=== PATIENT | female | born 1955 | race Caucasian/White ===

== ENCOUNTER 2017-10-24 17:02 | Emergency (ER) | payer MEDICAID ==
[~2017-10-24] VITALS: Ht 182.9 cm; Wt 62.1 kg
--- NOTE | 2017-10-24 17:30 | NUR ---
PATIENT TO ED DT LEFT LEG PAIN AND NUMBNESS X 5 DAYS. PATIENT VERBLAIZED " IM WORRIED ABOUT HAVING CLOT" PT IS AMBULATORY/ VSS
[2017-10-24 17:39] LABS: BASOPHILS # (AUTO) 0.1 /CMM (0.0-0.2); BASOPHILS % (AUTO) 1.2 % (0.0-2.0); EOSINOPHILS # (AUTO) 0.1 /CMM (0.0-0.7); EOSINOPHILS % (AUTO) 1.6 % (0.0-6.0); HEMATOCRIT 40 % (33-45); HEMOGLOBIN 13.2 g/dL (11.5-14.8); LYMPHOCYTES # (AUTO) 2.2 /CMM (0.8-4.8); LYMPHOCYTES % (AUTO) 31.6 % (20.0-44.0); MEAN CORPUSCULAR HEMOGLOBIN 27 PG (26.0-33.0); MEAN CORPUSCULAR HGB CONC 33 g/dl (31.0-36.0); MEAN CORPUSCULAR VOLUME 82 fL (82-100); MONOCYTES # (AUTO) 0.5 /CMM (0.1-1.30); MONOCYTES % (AUTO) 6.8 % (2.0-12.0); NEUTROPHILS % (AUTO) 58.8 % (43.0-81.0); PLATELET COUNT (AUTO) 250 /CMM (150-450); RED BLOOD CELL COUNT(AUTO) 4.83 MIL/uL (4.0-5.2); WHITE BLOOD COUNT (AUTO) 6.9 K/uL (4.3-11.0)
--- NOTE | 2017-10-24 17:52 | NUR ---
PT REFUSED CT BECAUSE SHE IS CLAUSTROPHOBIC. I SPOKE TO THE PT RE: THE CT AND PT AGREED TO GO FOR CT. PT LEFT VIA WC.
[2017-10-24 17:55] LABS: INR 0.92 (0.85-1.15)
[2017-10-24 17:58] LABS: TROPONIN I < 0.017 ng/mL (0.00-0.056)
--- NOTE | 2017-10-24 18:07 | NUR ---
PT RETURNED FROM CT VIA WC.
[2017-10-24 18:11] LABS: CALCIUM, SERUM 9.5 mg/dL (8.5-10.1); CARBON DIOXIDE 30 mmol/L (21-32); CHLORIDE 101 mmol/L (98-107); CREATININE 0.7 mg/dL (0.6-1.3); GLUCOSE 101 mg/dL (74-106); POTASSIUM 3.9 mmol/L (3.5-5.1); SODIUM SERUM 139 mmol/L (136-145); UREA NITROGEN, BLOOD 11 mg/dL (7-18)
[2017-10-24 18:17] LABS: ALANINE AMINOTRANSFERASE 22 U/L (12-78); ALBUMIN 3.8 g/dL (3.4-5.0); ALKALINE PHOSPHATASE 110 U/L (46-116); ASPARTATE AMINOTRANSFERASE 25 U/L (15-37); BILIRUBIN,DIRECT 0.1 mg/dL (0.0-0.2); BILIRUBIN,TOTAL 0.4 mg/dL (0.2-1.0); TOTAL PROTEIN, SERUM 7.6 g/dL (6.4-8.2)
--- NOTE | 2017-10-24 18:42 | NUR ---
VENOUS AND ARTERIAL DOPPLER TECH IS AT THE BEDSIDE.
--- NOTE | 2017-10-24 19:19 | NUR ---
VENOUS DOPPLER FINISHED.
--- NOTE | 2017-10-24 19:32 | NUR ---
DR. KHAN IS AT THE BEDSIDE SPEAKING TO THE PT RE: CT FINDINGS.
[2017-10-24 19:48] VITALS: BP 116/75
== END 2017-10-24 19:49 | disposition home or self-care (01) ==
LOC: ER 17:03
DX: M51.26 Other intervertebral disc displacement, lumbar region (principal); R20.2 Paresthesia of skin
CPT/HCPCS: 36415; 70450-TC; 71045-TC; 72131-TC; 80048-TC; 80076-TC; 84484-TC; 85025-TC; 85730-TC; 93926-TC; 93971-TC; A4606; Z7610

== ENCOUNTER 2018-11-06 07:20 | Emergency (ER) | payer OTHER ==
[~2018-11-06] VITALS: Ht 180.3 cm; Wt 62.6 kg
--- NOTE | 2018-11-06 07:20 | NUR ---
PT BBSELF FOR DYSURIA, URGENCY X 2 DAYS; PT AAOX3, PT ON MONITOR, VSS, NAD NOTED, PENDING ER PROVDER EVAL
--- NOTE | 2018-11-06 07:50 | NUR ---
URINE COLLECTED, SENT TO LAB
--- NOTE | 2018-11-06 07:51 | NUR ---
PER DR. ARMAS; CALL SW FOR PT. CALLED [facility], NOT IN BUILDING YET
[2018-11-06 07:56] LABS: APPEARANCE,URINE CLOUDY (CLEAR); BILIRUBIN,URINE NEGATIVE (NEGATIVE); BLOOD, URINE 3+ Ery/uL (NEGATIVE); COLOR,URINE YELLOW (YELLOW); KETONES,URINE NEGATIVE (NEGATIVE); LEUKOCYTE ESTERASE ,URINE 3+ (NEGATIVE); NITRITE, URINE POSITIVE (NEGATIVE); PROTEIN,URINE 2+ mg/dl (NEGATIVE); UGLUCOSE NEGATIVE (NEGATIVE); UROBILINOGEN,URINE 0.2 EU/dL (0.2)
[2018-11-06 07:58] LABS: BASOPHILS # (AUTO) 0.1 /CMM (0.0-0.2); BASOPHILS % (AUTO) 1.2 % (0.0-2.0); EOSINOPHILS % (AUTO) 0.9 % (0.0-6.0); HEMATOCRIT 40 % (33-45); HEMOGLOBIN 12.9 g/dL (11.5-14.8); LYMPHOCYTES # (AUTO) 4.5 /CMM (0.8-4.8); LYMPHOCYTES % (AUTO) 42.3 % (20.0-44.0); MEAN CORPUSCULAR HGB CONC 33 g/dl (31.0-36.0); MEAN CORPUSCULAR VOLUME 80 fL (82-100); MONOCYTES # (AUTO) 0.5 /CMM (0.1-1.30); MONOCYTES % (AUTO) 4.7 % (2.0-12.0); NEUTROPHILS # (AUTO) 5.3 /CMM (1.8-8.9); NEUTROPHILS % (AUTO) 50.9 % (43.0-81.0); PLATELET COUNT (AUTO) 163 /CMM (150-450); RED BLOOD CELL COUNT(AUTO) 4.95 MIL/uL (4.0-5.2); WHITE BLOOD COUNT (AUTO) 10.5 K/uL (4.3-11.0)
[2018-11-06 08:01] LABS: BACTERIA,URINE Many /HPF (None Seen); RBC,URINE TOO NUMEROUS TO COUN /HPF (0-2); SQUAMOUS EPITHELIAL CELL,UR Few /HPF (None Seen); WBC,URINE TOO NUMEROUS TO COUN /HPF (0-3)
[2018-11-06 08:07] LABS: CALCIUM, SERUM 9.5 mg/dL (8.5-10.1); CARBON DIOXIDE 28 mmol/L (21-32); CHLORIDE 100 mmol/L (98-107); CREATININE 0.9 mg/dL (0.6-1.3); GLUCOSE 107 mg/dL (74-106); POTASSIUM 4.4 mmol/L (3.5-5.1); SODIUM SERUM 140 mmol/L (136-145); UREA NITROGEN, BLOOD 14 mg/dL (7-18)
[2018-11-06 08:14] LABS: ALANINE AMINOTRANSFERASE 26 U/L (12-78); ALCOHOL, BLOOD < 3 mg/dL (0-0); ALKALINE PHOSPHATASE 139 U/L (46-116); ASPARTATE AMINOTRANSFERASE 30 U/L (15-37); BILIRUBIN,DIRECT 0.1 mg/dL (0.0-0.2); BILIRUBIN,TOTAL 0.7 mg/dL (0.2-1.0); SALICYLATE 0.5 mg/dL (2.8-20.0); TOTAL PROTEIN, SERUM 8.1 g/dL (6.4-8.2)
--- NOTE | 2018-11-06 08:14 | NUR ---
[facility] SW AT BEDSIDE TALKING TO PATIENT.
[2018-11-06 08:15] LABS: ACETAMINOPHEN < 2 ug/ml (10-30)
--- NOTE | 2018-11-06 08:30 | NUR ---
LOS received a call from ED requesting for SW to assess pt. SW met with pt. bedside. Pt. is a 63 year old female who came to ED complaining of a UTI. Pt. appears well groomed. Pt. is alert and oriented x 4. Pt's. mood was anxious and her affect was mood congruent. Patient reported having one daughter Alma Barry. When SW inquired about Alma, pt. stated, " [place] is [place] of the [place]." SW inquired with pt. where she resides and pt. stated she is renting a room. However, pt. would not elaborate any further. SW asked the address to her residence, however pt. did not provide. the address on the face sheet is pt's mailing address. Pt. has recently applied for SSI and is awaiting her initial check. Pt. appeared confused at times, however was able to respond appropriately to questions that were asked of her. LOS inquired with pt. if she needs any resources, but pt. declined. SW offered pt. breakfast, which pt. agreed to. Pt's RN Chuy was informed regarding a breakfast tray. SW offered pt. taxi transportation if her friend was unable to pick her up. No other social service needs are requested at this time. LOS updated Dr. Banks with the aforementioned information.
--- NOTE | 2018-11-06 08:50 | NUR ---
PT PROVIDED W/ BREAKFAST TRAY.
--- NOTE | 2018-11-06 09:45 | NUR ---
Isrrael CINTRON at bedside for eval.
[2018-11-06] MEDS ORDERED: CEPHALEXIN MONOHYDRATE 500 MG CAPSULE PO ONE ×2 (10:00→10:09)
[2018-11-06 11:33] VITALS: BP 121/65
--- NOTE | 2018-11-06 11:34 | NUR ---
Patient discharged to home in stable condition. Written and verbal after care instructions given. Patient verbalizes understanding of instruction. Addendum: 11/06/18 at 1134 by RAKEL taxi voucher provided. informed to follow up with PMD and amenable.
== END 2018-11-06 11:34 | disposition home or self-care (01) ==
LOC: ER 07:24
DX: N39.0 Urinary tract infection, site not specified (principal); F43.9 Reaction to severe stress, unspecified; Z60.2 Problems related to living alone
CPT/HCPCS: 36415; 80048-TC; 80076-TC; 80305; 81000-TC; 85025-TC; 87086-TC; 87186-TC; G0480

== ENCOUNTER 2019-04-06 17:22 | Emergency (ER) | payer OTHER ==
[~2019-04-06] VITALS: Ht 182.9 cm; Wt 62.6 kg
[2019-04-06 17:25] VITALS: BP 125/84
[2019-04-06 17:41] LABS: APPEARANCE,URINE Cloudy (CLEAR); BILIRUBIN,URINE Negative (NEGATIVE); BLOOD, URINE Small Ery/uL (NEGATIVE); COLOR,URINE Other (YELLOW); KETONES,URINE Negative (NEGATIVE); LEUKOCYTE ESTERASE ,URINE Large (NEGATIVE); NITRITE, URINE Negative (NEGATIVE); PROTEIN,URINE Negative (NEGATIVE); UGLUCOSE Negative (NEGATIVE); UROBILINOGEN,URINE 0.2 EU/dL (0.2)
[2019-04-06 17:53] LABS: BACTERIA,URINE Rare /HPF (None Seen); SQUAMOUS EPITHELIAL CELL,UR Few /HPF (None Seen); WBC,URINE TOO NUMEROUS TO COUN /HPF (0-3)
[2019-04-06] MEDS ORDERED: FOSFOMYCIN TROMETHAMINE 3 G/PKT PACKET PO ONE (18:30)
== END 2019-04-06 18:22 | disposition home or self-care (01) ==
LOC: ER 17:22
DX: N30.00 Acute cystitis without hematuria (principal); M54.5 Low back pain; Z60.2 Problems related to living alone
CPT/HCPCS: 81000-TC; 87086-TC; 87186-TC

== ENCOUNTER 2019-12-30 21:35 | Inpatient (IN) | payer MEDICARE, OTHER ==
[~2019-12-30] VITALS: Ht 182.9 cm; Wt 69.0 kg
--- NOTE | 2019-12-30 21:50 | NUR ---
PT BIBRA C/O CP SINCE 7PM WITH PALPITATIONS THAT STARTED "OUT OF NOWHERE." ON THE WAY PT HR WAS 200, GIVEN 6 ADENOSINE, CONVERTED TO 100. UPON ARRIVAL PT DENIES CP UPON ASSESSMENT, HR AT 102. PLACED ON FURNITURE TECHNICIAN AND PULSE OX. VSS. NO ACUTE DISTRESS NOTED. AWAITING MD FOR EVAL AND ORDERS.
--- NOTE | 2019-12-30 22:14 | NUR ---
PRODUCE WRAPPER AT BEDSIDE FOR LABS
--- NOTE | 2019-12-30 22:19 | NUR ---
XRAY AT BEDSIDE
[2019-12-30 22:22] LABS: EOSINOPHILS % (AUTO) 0.3 % (0.0-6.0); HEMOGLOBIN 9.2 g/dL (11.5-14.8)
[2019-12-30 22:26] LABS: BASOPHILS # (AUTO) 0.1 /CMM (0.0-0.2); BASOPHILS % (AUTO) 0.1 % (0.0-2.0); HEMATOCRIT 32 % (33-45); LYMPHOCYTES # (AUTO) 80.1 /CMM (0.8-4.8); LYMPHOCYTES % (AUTO) 91.8 % (20.0-44.0); MEAN CORPUSCULAR HGB CONC 29 g/dl (31.0-36.0); MEAN CORPUSCULAR VOLUME 77 fL (82-100); MONOCYTES # (AUTO) 1.4 /CMM (0.1-1.30); MONOCYTES % (AUTO) 1.6 % (2.0-12.0); NEUTROPHILS # (AUTO) 5.4 /CMM (1.8-8.9); NEUTROPHILS % (AUTO) 6.2 % (43.0-81.0); PLATELET COUNT (AUTO) 124 /CMM (150-450)
--- NOTE | 2019-12-30 22:27 | NUR ---
WBC 87.2 CRITICAL
[2019-12-30 22:29] LABS: POTASSIUM 4.4 mmol/L (3.5-5.1); WHITE BLOOD COUNT (AUTO) 87.2 K/uL (4.3-11.0)
--- NOTE | 2019-12-30 22:43 | NUR ---
IV REMOVED FROM L FOREARM DUE TO PT NOT HAVING LYMPH NODES. IV INITIATED RAC.
--- NOTE | 2019-12-30 22:50 | NUR ---
AMBUALTED TO RESTROOM
--- NOTE | 2019-12-30 22:57 | NUR ---
URINE COLLECTED AND SENT TO LAB
[2019-12-30] MEDS ORDERED: IV NS 0.9% 1,000 ML BAG IV ONE (23:00)
[2019-12-30 23:04] LABS: APPEARANCE,URINE Clear (CLEAR); BILIRUBIN,URINE Negative (NEGATIVE); BLOOD, URINE Negative Ery/uL (NEGATIVE); COLOR,URINE Yellow (YELLOW); KETONES,URINE Negative (NEGATIVE); LEUKOCYTE ESTERASE ,URINE Trace (NEGATIVE); NITRITE, URINE Negative (NEGATIVE); PH,URINE 6.5 (5.0-8.0); PROTEIN,URINE Negative (NEGATIVE); UGLUCOSE Negative (NEGATIVE); UROBILINOGEN,URINE 0.2 EU/dL (0.2)
[2019-12-30 23:15] LABS: BACTERIA,URINE Few /HPF (None Seen); RBC,URINE 0-2 /HPF (0-2); SQUAMOUS EPITHELIAL CELL,UR Few /HPF (None Seen)
[2019-12-30 23:15] LABS: EOSINOPHILS % (MANUAL) 1 % (0-4); LYMPHOCYTES % (MANUAL) 94 % (16-48); MONOCYTES % (MANUAL) 1 % (0-11.0); NEUTROPHILS % (MANUAL) 4 (42-76)
[2019-12-30] MEDS ORDERED: LORAZEPAM 0.5 MG TABLET ONE (23:18)
--- NOTE | 2019-12-30 23:19 | NUR ---
MD AT BEDSIDE SPEAKING TO PT
[2019-12-30 23:23] LABS: ALBUMIN 3.4 g/dL (3.4-5.0); BILIRUBIN,DIRECT 0.1 mg/dL (0.0-0.2); BILIRUBIN,TOTAL 0.5 mg/dL (0.2-1.0); TOTAL PROTEIN, SERUM 7.4 g/dL (6.4-8.2)
[2019-12-30] MEDS ORDERED: LORAZEPAM 1 MG TABLET PO ONE (23:30)
[2019-12-31] VITALS (9 sets, daily range): BP systolic 98–109; BP diastolic 65–82
[2019-12-31] MEDS ORDERED: ONDANSETRON HCL/PF 4 MG/2 ML VIAL IVP PRN (01:00)
[2019-12-31] MEDS ORDERED: ZOLPIDEM TARTRATE 5 MG TABLET PO PRN (01:00)
[2019-12-31] MEDS ORDERED: ACETAMINOPHEN 325 MG TABLET PO PRN (01:00)
[2019-12-31] MEDS ORDERED: Z GUARD REMEDY 2 OZ OINT TP PRN (01:00)
[2019-12-31] MEDS ORDERED: HYDROCODONE/APAP 5/325MG 1 EACH TABLET PO PRN (01:00)
[2019-12-31] MEDS ORDERED: MAGNESIUM HYDROXIDE 30 ML UDC PO PRN (01:00)
[2019-12-31 01:18] LABS: THYROID STIMULATING HORMONE 4.558 uIU/mL (0.358-3.74)
--- NOTE | 2019-12-31 01:19 | NUR ---
REPORT GIVEN TO STACY PATTERSON FOR AILEEN
--- NOTE | 2019-12-31 01:40 | NUR ---
ECHO AT BEDSIDE
--- NOTE | 2019-12-31 02:29 | NUR ---
PT TRANSFERERD PER ACLS PROTOCOL
--- NOTE | 2019-12-31 03:19 | NUR ---
ADMISSION NOTES: RECEIVED REPORT FROM BENY AT 0140AM. PT BROUGHT TO THE UNIT VIA GURNEY AT 0225AM. PT A/O X4, ON RA RESPIRATION EVEN AND UNLABORED. PT DENIES ANY CHEST PAIN, DENIES ANY PALPITATION AT THIS TIME. IV ACCESS PATENT AND FLUSHING WELL, ON HL. PT REFUSED SKIN ASSESSMENT STATED SHE DOESN'T HAVE WOUND AND SHES NOT COMFORTABLE WITH CHECKING HER BODY. PT ALSO DENIES TAKING ANY MEDICATION AT HOME. STATED SHE LIVES BY HERSELF, MASTECTOMY DONE YEAR 1999. DISCUSSED PLAN OF ACRE TO PT. ON TELE MONITORING SINUS RHYTHM HR 95. ORIENTED PT TO UNIT POLICY AND HOURLY ROUNDING, USE OF CALL LIGHT SYSTEM. SAFETY PRECAUTIONS FOR FALL INITIATED, CALL LIGHT IN REACH, WILL CONTINUE MONITORING PT.
--- NOTE | 2019-12-31 06:37 | NUR ---
end of shift report: pt remains on sinus rhythm hr 65. denies any palpitation, chest pain throughout the shift. iv access remains patent and flushing well, on hl. no s/s of iv infiltration noted. safety precautions for fall remains engaged, call light in reach, will endorse to day rn for arcelia.
--- NOTE | 2019-12-31 07:30 | NUR ---
MS/RN Patient received Patient received from night guard. A/O X4, vital signs stable, denies any further chest pain or palpations. Tele reading NSR at this time. All questions and concerns addressed. Safety measures in place, bed in low setting, side rails X3 in upright position, call light within reach. Will continue to monitor and ensure safety.
--- NOTE | 2019-12-31 08:00 | NUR ---
MS/RN S/B Dr Galindo Seen by Dr Galindo - low dose beta brianna ordered, consider ablation if frequent recurrence of SVT. follow up in office one week post discharge.
--- NOTE | 2019-12-31 08:35 | NUR ---
MS/RN S/B Dr Campbell Seen by Dr Campbell - hematology consult ordered for further work up of possible lymphoma. Possible discharge later today after consult and if labs stable.
[2019-12-31 08:40] LABS: EOSINOPHILS % (AUTO) 0.2 % (0.0-6.0); HEMATOCRIT 28 % (33-45); HEMOGLOBIN 8.6 g/dL (11.5-14.8); LYMPHOCYTES # (AUTO) 75.9 /CMM (0.8-4.8); LYMPHOCYTES % (AUTO) 93.6 % (20.0-44.0); MEAN CORPUSCULAR HGB CONC 30 g/dl (31.0-36.0); MEAN CORPUSCULAR VOLUME 77 fL (82-100); MONOCYTES # (AUTO) 0.6 /CMM (0.1-1.30); MONOCYTES % (AUTO) 0.7 % (2.0-12.0); NEUTROPHILS # (AUTO) 4.5 /CMM (1.8-8.9); NEUTROPHILS % (AUTO) 5.5 % (43.0-81.0); PLATELET COUNT (AUTO) 103 /CMM (150-450); RED BLOOD CELL COUNT(AUTO) 3.68 MIL/uL (4.0-5.2)
[2019-12-31 08:51] LABS: WHITE BLOOD COUNT (AUTO) 81.2 K/uL (4.3-11.0)
--- NOTE | 2019-12-31 08:52 | NUR ---
/RN Critical lab Call received from lab with critical results: -WBC - 81.[address] Campbell, lab result is treding down, was previously 87.2. Addendum: 12/31/19 at 0855 by TATO ARCINIEGA Unable to document critical lab result on interventions, states that value is beyond maximum.
[2019-12-31 08:55] LABS: CALCIUM, SERUM 8.9 mg/dL (8.5-10.1); CREATININE 0.8 mg/dL (0.6-1.3); MAGNESIUM 2.2 mg/dL (1.8-2.4); PHOSPHORUS 3.4 mg/dL (2.5-4.9)
[2019-12-31] MEDS: METOPROLOL TARTRATE 25 MG TABLET PO SCH ×2 (09:00→20:27)
--- NOTE | 2019-12-31 09:04 | NUR ---
MS/RN Refused medication Patient refusing to take metoprolol 25mg, started by Dr Galindo this morning. Explained the importance of taking this medication as it will help with controlling heartrate. Patient still refusing.
[2019-12-31 09:39] LABS: THYROID STIMULATING HORMONE 2.556 uIU/mL (0.358-3.74)
[2019-12-31 09:42] LABS: PHOSPHORUS 3.3 mg/dL (2.5-4.9)
[2019-12-31 10:13] LABS: BAND % (MANUAL) 1 % (0.0-5.0); LYMPHOCYTES % (MANUAL) 86 % (16-48); MONOCYTES % (MANUAL) 5 % (0-11.0); NEUTROPHILS % (MANUAL) 6 (42-76); REACTIVE LYMPHOCYTES 2 % (0-0)
[2019-12-31] MEDS ORDERED: ERGO500014 PO (10:56)
[2019-12-31] MEDS ORDERED: MECL-182 PO (10:56)
--- NOTE | 2019-12-31 13:00 | NUR ---
MS/utilization management rn Remains NSR on tele monitor. Continues to deny any chest pain or discomfort.
--- NOTE | 2019-12-31 15:47 | NUR ---
MS/RN Release of medical information Release of medical information form signed by patient and faxed to Dr Eriberto Mitchell's office to obtain any previous labs and imaging. -Dr Eriberto Mitchell -*[phone]
--- NOTE | 2019-12-31 18:06 | NUR ---
MS/RN End note Patietn remains instable condition, continues to deny any chest pain or discomfort. Vital signs stable throughout the day, NSR noted on tele monitor. Awaiting medical records to be faxed over from own oncologist. All questions and concerns addressed, will endorse to night shfit.
--- NOTE | 2019-12-31 19:20 | NUR ---
physical therapy manager opening notes Received Pt from morning nurse. Pt is alert and orientedX4. Pt is resting in bed comfortably. Respiration is normal in room air. No SOB. No S/S of distress noted. IV sites at RFA# 18 is clean, intact, patent and SL. Tele monitor showed SR hr at 75 bpm. Safety precautions is maintained. Bed at low position, brakes locked, side rails upX2 and call light is within reach. Will continue to monitor.
--- NOTE | 2019-12-31 22:40 | NUR ---
popcorn candy maker notes Pt's refused to have blood drawn (flow cytometry, cea serum, cancer AG,15-3 and procalcitonin). Offered multiple times. Made aware risks and benefits. Pt keep refusing. Pt stated " I just want to sleep!!" Spoke with John, [facility] to try again in the morning. Will continue to monitor
[2020-01-01] VITALS (7 sets, daily range): BP systolic 93–143; BP diastolic 59–76
--- NOTE | 2020-01-01 06:58 | NUR ---
java mobile developer opening notes Pt is alert and orientedX4. Pt is resting in bed comfortably. Respiration is normal in room air. No SOB. No S/S of distress noted. VS is stable. IV sites at RFA# 18 is clean, intact, patent and SL. Tele monitor showed SR hr at 71 bpm. Kept Pt clean, dry and comfortable. Safety precautions is maintained. Bed at low position, brakes locked, side rails upX2 and call light is within reach. Will endorse to morning nurse for AILEEN. Addendum: 01/01/20 at 0702 by ADI LAWSON RN java mobile developer closing notes
[2020-01-01] MEDS ORDERED: METOPROLOL TARTRATE 25 MG TABLET PO PRN (07:00)
--- NOTE | 2020-01-01 07:30 | NUR ---
MS RN NOTES RECEIVED PATIENT IN BED ALERT AND AWAKE ORIENTED X4. NO SOB. DENIES ANY C/O PAIN NOR DISCOMFORT AT THIS TIME. PATIENT SEEN AND EXAMINED BY DR. RAMON AND KHANH'D TELE. AMBULATORY WITH STEADY GAIT. BED IN LOWEST POSITION, LOCKED. BED ALARM ON. CALL LIGHT WITHIN REACH. ABLE OT VERBALIZE NEEDS.
[2020-01-01] MEDS ORDERED: SOD FERRIC GLUC 125 MG in IV NS 0.9% 100 ML IV SCH (14:00)
--- NOTE | 2020-01-01 17:55 | NUR ---
MS RN NOTES ALERT AND ORIENTED X4. NO S/S OF RESPIRATORY DISTRESS. DENIES ANY C/O PAIN NOR DISCOMFORT AT THIS TIME. AMBULATORY WITH STEADY GAIT. IV ACCESS REMOVED WITH CATHETER TIP INTACT. DISCHARGE INSTRUCTIONS AND PACKET GIVEN TO PATIENT AND DISCUSSED WITH DAUGHTER RONNA WELL. ALL BELONGINGS ACCOUNTED FOR. PATIENT PICKED UP BY DAUGHTER AND LEFT IN STABLE CONDITION. PER RONNA, SHE ALREADY SCHEDULED AN APPOINTMENT WITH DR. DOVE AND HAD SPOKEN TO HER WELL REGARDING PATIENT'S PLAN OF CARE.
[2020-01-02 11:07] LABS: CANCER AG, 15-3 39.4 U/mL (0.0-25.0)
== END 2020-01-01 17:55 | disposition home or self-care (01) | DRG 310 ==
LOC: ER 21:36 → TELE 12-31 00:39 → MED 01-01 11:38
PROVIDERS: ADMIT Family Medicine; ATTEND Internal Medicine
DX: I47.1 Supraventricular tachycardia (principal); Z85.3 Personal history of malignant neoplasm of breast; Z90.13 Acquired absence of bilateral breasts and nipples; D50.9 Iron deficiency anemia, unspecified; D72.829 Elevated white blood cell count, unspecified; D69.59 Other secondary thrombocytopenia; D63.0 Anemia in neoplastic disease; D69.6 Thrombocytopenia, unspecified
CPT/HCPCS: 36415; 71045-TC; 80048-TC; 80061-TC; 80076-TC; 81000-TC; 82378; 82728-TC; 83540-TC; 83690-TC; 83735-TC; 84100-TC; 84439-TC; 84443-TC; 84481; 84484-TC; 85025-TC; 85730-TC; 86300; 86850-TC; 87081-TC; 93307-TC; G0378; J2916; J7030

== ENCOUNTER 2020-01-25 11:30 | Inpatient (IN) | payer MEDICARE, OTHER ==
[~2020-01-25] VITALS: Ht 167.6 cm; Wt 72.1 kg
[~2020-01-25 11:30] MED LIST: ERGO500014 PO; MECL-182 PO
--- NOTE | 2020-01-25 11:45 | NUR ---
[id number] FROM HOME, SENT BY MD FOR ELEVATED WBC AND WEAKNESS. PATIENT A/OX4, DENIES ANY PAIN AT THIS TIME, BREATHING EVEN AND UNLABORED, NO SOB NOTED, NEEDS ATTENDED. KEPT COMFORTABLE. CHANGED INTO GOWN, ATTACHED TO THE VIBRATING SCREED OPERATOR. DR. ARMAS AT BEDSIDE FOR EVAL.
[2020-01-25] MEDS ORDERED: HYDROXYUREA 500 MG CAPSULE PO SCH (12:00)
[2020-01-25] MEDS ORDERED: IV NS 0.9% 1,000 ML BAG IV ONE (12:00)
[2020-01-25] MEDS ORDERED: ALLOPURINOL 100 MG TABLET PO SCH (12:00)
[2020-01-25 12:08] LABS: BASOPHILS # (AUTO) 0.3 /CMM (0.0-0.2); BASOPHILS % (AUTO) 0.3 % (0.0-2.0); EOSINOPHILS % (AUTO) 0.1 % (0.0-6.0); HEMATOCRIT 34 % (33-45); HEMOGLOBIN 9.9 g/dL (11.5-14.8); LYMPHOCYTES # (AUTO) 87.4 /CMM (0.8-4.8); LYMPHOCYTES % (AUTO) 91.7 % (20.0-44.0); MEAN CORPUSCULAR HGB CONC 29 g/dl (31.0-36.0); MEAN CORPUSCULAR VOLUME 82 fL (82-100); MONOCYTES # (AUTO) 2.1 /CMM (0.1-1.30); MONOCYTES % (AUTO) 2.2 % (2.0-12.0); NEUTROPHILS # (AUTO) 5.5 /CMM (1.8-8.9); NEUTROPHILS % (AUTO) 5.7 % (43.0-81.0); PLATELET COUNT (AUTO) 84 /CMM (150-450); RED BLOOD CELL COUNT(AUTO) 4.08 MIL/uL (4.0-5.2)
--- NOTE | 2020-01-25 12:08 | NUR ---
PATIENT HAS QUESTIONS RE: MEDICATIONS RECOMMENDED BY DR. DOVE. INFORMED DR. ARMAS, PER MD, HOLD MEDICATION FOR NOW UNTIL PATIENT TALKS TO ONCOLOGIST (DR. DOVE)
[2020-01-25 12:16] LABS: CALCIUM, SERUM 9.4 mg/dL (8.5-10.1); CARBON DIOXIDE 26 mmol/L (21-32); CHLORIDE 100 mmol/L (98-107); CREATININE 0.8 mg/dL (0.6-1.3); GLUCOSE 118 mg/dL (74-106); POTASSIUM 4.2 mmol/L (3.5-5.1); SODIUM SERUM 133 mmol/L (136-145); UREA NITROGEN, BLOOD 13 mg/dL (7-18)
[2020-01-25 12:23] LABS: WHITE BLOOD COUNT (AUTO) 95.4 K/uL (4.3-11.0)
[2020-01-25 12:33] LABS: ALANINE AMINOTRANSFERASE 19 U/L (12-78); ALBUMIN 3.5 g/dL (3.4-5.0); ALKALINE PHOSPHATASE 134 U/L (46-116); ASPARTATE AMINOTRANSFERASE 26 U/L (15-37); BILIRUBIN,DIRECT 0.1 mg/dL (0.0-0.2); BILIRUBIN,TOTAL 0.5 mg/dL (0.2-1.0); TOTAL PROTEIN, SERUM 7.5 g/dL (6.4-8.2)
[2020-01-25 12:45] LABS: APPEARANCE,URINE Clear (CLEAR); BILIRUBIN,URINE Negative (NEGATIVE); BLOOD, URINE Negative Ery/uL (NEGATIVE); COLOR,URINE Yellow (YELLOW); KETONES,URINE Negative (NEGATIVE); LEUKOCYTE ESTERASE ,URINE Negative (NEGATIVE); NITRITE, URINE Negative (NEGATIVE); PROTEIN,URINE Negative (NEGATIVE); UGLUCOSE Negative (NEGATIVE); UROBILINOGEN,URINE 0.2 EU/dL (0.2)
--- NOTE | 2020-01-25 13:11 | NUR ---
CALLED NURSING SUP FOR M/S BED.
--- NOTE | 2020-01-25 13:12 | NUR ---
PAGED [facility].
[2020-01-25 13:15] LABS: BAND % (MANUAL) 1 % (0.0-5.0); LYMPHOCYTES % (MANUAL) 91 % (16-48); MONOCYTES % (MANUAL) 2 % (0-11.0); NEUTROPHILS % (MANUAL) 6 (42-76)
--- NOTE | 2020-01-25 13:23 | NUR ---
PATIENT RESTING NO DISTRESS NOTED.
--- NOTE | 2020-01-25 13:25 | NUR ---
NURSING SUP GAVE TELE BED 319-2.
--- NOTE | 2020-01-25 14:13 | NUR ---
REPORT GIVEN TO LORENA GARRETT.
--- NOTE | 2020-01-25 14:47 | NUR ---
PATIENT TRANSFERRED TO ROOM 319, NO DISTRESS NOTED. NEEDS ATTENDED.
[2020-01-25] MEDS ORDERED: IOHEXOL-300 100 ML VIAL IV ONE (14:51)
[2020-01-25] MEDS ORDERED: CT SWABBABLE VALVE TRANS SET 1 EA INFUS.SET MC ONE (14:52)
[2020-01-25] MEDS ORDERED: IV NS 0.9% 0 ML IV ONE (14:52)
[2020-01-25 15:00] VITALS: BP 95/61
[2020-01-25] MEDS ORDERED: ZOLPIDEM TARTRATE 5 MG TABLET PO PRN (15:00)
[2020-01-25] MEDS ORDERED: MORPHINE SULFATE INJ 2 MG/ML DISP.SYRIN IV PRN (15:00)
[2020-01-25] MEDS ORDERED: ONDANSETRON HCL/PF 4 MG/2 ML VIAL IVP PRN (15:00)
[2020-01-25] MEDS: PANTOPRAZOLE 40 MG TABLET.DR PO SCH (15:00)
[2020-01-25] MEDS: HYDROXYUREA 500 MG CAPSULE PO SCH (15:00)
[2020-01-25] MEDS ORDERED: Z GUARD REMEDY 2 OZ OINT TP PRN (15:00)
[2020-01-25] MEDS ORDERED: HYDROCODONE/APAP 5/325MG 1 EACH TABLET PO PRN ×2 (15:00)
[2020-01-25] MEDS ORDERED: ACETAMINOPHEN 325 MG TABLET PO PRN (15:00)
--- NOTE | 2020-01-25 15:09 | NUR ---
MS/RN NOTE THE PATIENT IS RECEIVED ON A GURNEY FROM ER. THE PATIENT IS ALERT AND ORIENTED X4. DENIES SOB. RESPIRATION REGULAR AND UNLABORED. DENIES PAIN. THE PATIENT IN NO APPARENT DISTRESS. RAC G 20 PATENT AND SALINE LOCKED. PATIENT IS ORIENTED TO ROOM/UNIT AND SHE VERBALIZED UNDERSTANDING. BED LOW AND LOCKED. SIDE RAILS UP X3. CALL LIGHT WITHIN REACH. WILL CONTINUE TO MONITOR.
[2020-01-25 15:49] VITALS: BP 95/61
[2020-01-25] MEDS: IV NS 0.9% 1,000 ML IV PRN (16:11)
[2020-01-25] MEDS: ALLOPURINOL 100 MG TABLET PO SCH (17:00)
--- NOTE | 2020-01-25 18:30 | NUR ---
MS/RN NOTE THE PATIENT IS ALERT AND ORIENTED X4. IN ROOM AIR AND SATURATION IS AT 97%. DENIES SOB. RESPIRATION REGULAR AND UNLABORED. DENIES PAIN. THE PATIENT IN NO APPARENT DISTRESS. THE PATIENT NON-COMPLIANT WITH TREATMENT PLAN AND REFUSING MEDICATION AND CT SCAN DESPITE EXPLAINING RISKS AND BENEFITS. CALEB DAVENPORT AND DR DOVE ARE MADE AWARE. RAC G 20 PATENT AND NS INFUSING AT 100ML/HR. NO S/S INFILTRATION NOTED. BED LOW AND LOCKED. SIDE RAILS X 2. CALL LIGHT WITHIN REACH. WILL ENDORSE TO PEDIATRIC CARDIOLOGIST.
--- NOTE | 2020-01-25 19:10 | NUR ---
MS RN NOTES RECEIVED PT IN BED AWAKE AND ABLE TO MAKE NEEDS KNOWN. PT A/O X3. RESPIRATIONS EVEN AND UNLABORED WITH NO S/S OF ACUTE DISTRESS OR SOB NOTED THROUGHOUT SHIFT. NO COMPLAINTS OF PAIN AT THIS TIME. PT KEPT CLEAN, DRY, AND COMFORTABLE. SAFETY MEASURES IN PLACE WITH BED IN LOWEST LOCKED POSITION WITH SIDE RAILS UP X2. CALL LIGHT WITHIN REACH. WILL ENDORSE TO ONCOMING NURSE FOR AILEEN. Addendum: 01/26/20 at 0747 by LILLIANA DARBY RN MS RN NOTES RECEIVED PT IN BED AWAKE AND ABLE TO MAKE NEEDS KNOWN. PT A/O X3. RESPIRATIONS EVEN AND UNLABORED WITH NO S/S OF ACUTE DISTRESS OR SOB NOTED. NO COMPLAINTS OF PAIN AT THIS TIME. SAFETY MEASURES IN PLACE WITH BED IN LOWEST LOCKED POSITION WITH SIDE RAILS UP X2. CALL LIGHT WITHIN REACH. WILL CONTINUE TO MONITOR.
[2020-01-25 20:00] VITALS: BP 98/63
[2020-01-26] MEDS: IV NS 0.9% 1,000 ML IV PRN ×3 (02:29→21:45)
[2020-01-26 07:27] LABS: BASOPHILS # (AUTO) 0.1 /CMM (0.0-0.2); BASOPHILS % (AUTO) 0.1 % (0.0-2.0); EOSINOPHILS % (AUTO) 0.2 % (0.0-6.0); HEMATOCRIT 31 % (33-45); HEMOGLOBIN 9.1 g/dL (11.5-14.8); LYMPHOCYTES # (AUTO) 86.2 /CMM (0.8-4.8); LYMPHOCYTES % (AUTO) 93.7 % (20.0-44.0); MEAN CORPUSCULAR HGB CONC 30 g/dl (31.0-36.0); MEAN CORPUSCULAR VOLUME 83 fL (82-100); MONOCYTES # (AUTO) 1.3 /CMM (0.1-1.30); MONOCYTES % (AUTO) 1.4 % (2.0-12.0); NEUTROPHILS # (AUTO) 4.2 /CMM (1.8-8.9); NEUTROPHILS % (AUTO) 4.6 % (43.0-81.0); PLATELET COUNT (AUTO) 70 /CMM (150-450); RED BLOOD CELL COUNT(AUTO) 3.68 MIL/uL (4.0-5.2)
[2020-01-26] MEDS: PANTOPRAZOLE 40 MG TABLET.DR PO SCH (07:30)
--- NOTE | 2020-01-26 07:30 | NUR ---
PT RECEIVED RESTING COMFORTABLY IN BED. NO S/S OR C/O PAIN OR DISTRESS NOTED. SIDE RAILS UP X2, CALL LIGHT LEFT WITHIN REACH. WILL CONTINUE PLAN OF CARE.
--- NOTE | 2020-01-26 07:44 | NUR ---
MS RN NOTES PT IN BED AWAKE AND ABLE TO MAKE NEEDS KNOWN. PT A/O X3. RESPIRATIONS EVEN AND UNLABORED WITH NO S/S OF ACUTE DISTRESS OR SOB NOTED THROUGHOUT SHIFT. NO COMPLAINTS OF PAIN AT THIS TIME. PT KEPT CLEAN, DRY, AND COMFORTABLE. SAFETY MEASURES IN PLACE WITH BED IN LOWEST LOCKED POSITION WITH SIDE RAILS UP X2. CALL LIGHT WITHIN REACH. WILL ENDORSE TO ONCOMING NURSE FOR AILEEN. Addendum: 01/26/20 at 0745 by LILLIANA DARBY RN MS RN NOTES PT IN BED AWAKE AND ABLE TO MAKE NEEDS KNOWN. PT A/O X3. RESPIRATIONS EVEN AND UNLABORED WITH NO S/S OF ACUTE DISTRESS OR SOB NOTED THROUGHOUT SHIFT. NO COMPLAINTS OF PAIN AT THIS TIME. PT KEPT CLEAN, DRY, AND COMFORTABLE. SAFETY MEASURES IN PLACE WITH BED IN LOWEST LOCKED POSITION WITH SIDE RAILS UP X2. CALL LIGHT WITHIN REACH. WILL ENDORSE TO ONCOMING NURSE FOR AILEEN.
[2020-01-26 08:00] VITALS: BP 100/95
[2020-01-26 08:19] LABS: CALCIUM, SERUM 8.7 mg/dL (8.5-10.1); CREATININE 0.7 mg/dL (0.6-1.3); MAGNESIUM 2.1 mg/dL (1.8-2.4); PHOSPHORUS 3.7 mg/dL (2.5-4.9); POTASSIUM 4.2 mmol/L (3.5-5.1)
[2020-01-26] MEDS: HYDROXYUREA 500 MG CAPSULE PO SCH (09:00)
[2020-01-26] MEDS: ALLOPURINOL 100 MG TABLET PO SCH ×3 (09:00→17:00)
--- NOTE | 2020-01-26 12:00 | NUR ---
PT REFUSED CARE PT CONTINUALLY REFUSING IMAGING AND MEDICATIONS. PT TEACHING PERFORMED TO EXPLAIN IMPORTANCE BUT PT CONTINUED TO REFUSE. MD AWARE. WILL CONTINUE TO MONITOR.
[2020-01-26 12:05] LABS: LYMPHOCYTES % (MANUAL) 91 % (16-48); MONOCYTES % (MANUAL) 3 % (0-11.0); MYELOCYTES % 1 % (0-0); NEUTROPHILS % (MANUAL) 2 (42-76); REACTIVE LYMPHOCYTES 3 % (0-0)
[2020-01-26 16:00] VITALS: BP 117/64
[2020-01-26] MEDS ORDERED: LORAZEPAM 0.5 MG TABLET PO PRN (17:00)
--- NOTE | 2020-01-26 17:30 | NUR ---
IV INFILTRATED IV REMOVED WITH CATHETER INTACT. PRESSURE DRESSING APPLIED. WHEN NOTIFIED THAT I WAS GOING TO INSERT A NEW ONE PT STATED "MAYBE LATER". RN TEACHING PERFORMED TO EXPLAIN THE SIGNIFICANCE OF IV ACCESS BUT PATIENT CONTINUED TO REFUSE ADAMANTLY. WILL CONTINUE TO MONITOR.
--- NOTE | 2020-01-26 18:34 | NUR ---
CHANGE OF SHIFT REPORT PT RESTING COMFORTABLY IN BED. NO S/S OR C/O PAIN OR DISTRESS NOTED. SIDE RAILS UP X2, CALL LIGHT LEFT WITHIN REACH. PT KEPT CLEAN, DRY, AND COMFORTABLE. NO SIGNIFICANT CHANGES SINCE PREVIOUS SHIFT. WILL GIVE REPORT TO LAVON PATTERSON.
[2020-01-26] MEDS ORDERED: MAG HYDROX/AL HYDROX/SIMETH 30 ML UDC PO PRN (19:30)
[2020-01-26] MEDS: DOCUSATE SODIUM 100 MG CAPSULE PO SCH (19:30)
[2020-01-26 20:00] VITALS: BP 109/74
--- NOTE | 2020-01-26 20:33 | NUR ---
MS/TELE/RN PATIENT AGREED FOR IV INSERTION. SUCCESSFULLY INSERTED IV AT RT. F/A G22.
--- NOTE | 2020-01-26 22:54 | NUR ---
MS/TELE/RN REFUSED IV FLUID
--- NOTE | 2020-01-27 06:36 | NUR ---
MS/TELE/RN PATIENT IS AWAKE, ALERT, COMFORTABLE, NO C/O PAIN, NO DISTRESS NOTED, GOOD SLEEP NOTED THE WHOLE SHIFT, ALL NEEDS ATTENDED AT THIS TIME, WILL CONTINUE TO MONITOR.
[2020-01-27 06:45] LABS: EOSINOPHILS % (AUTO) 0.1 % (0.0-6.0); HEMATOCRIT 30 % (33-45); HEMOGLOBIN 9.1 g/dL (11.5-14.8); LYMPHOCYTES % (AUTO) 94.5 % (20.0-44.0); MEAN CORPUSCULAR HGB CONC 30 g/dl (31.0-36.0); MEAN CORPUSCULAR VOLUME 83 fL (82-100); MONOCYTES # (AUTO) 1.2 /CMM (0.1-1.30); MONOCYTES % (AUTO) 1.2 % (2.0-12.0); NEUTROPHILS # (AUTO) 4.2 /CMM (1.8-8.9); NEUTROPHILS % (AUTO) 4.2 % (43.0-81.0); PLATELET COUNT (AUTO) 74 /CMM (150-450); RED BLOOD CELL COUNT(AUTO) 3.63 MIL/uL (4.0-5.2)
[2020-01-27 07:03] LABS: CALCIUM, SERUM 8.4 mg/dL (8.5-10.1); CREATININE 0.7 mg/dL (0.6-1.3); POTASSIUM 4.2 mmol/L (3.5-5.1)
[2020-01-27 07:06] LABS: WHITE BLOOD COUNT (AUTO) 101.6 K/uL (4.3-11.0)
[2020-01-27] MEDS: PANTOPRAZOLE 40 MG TABLET.DR PO SCH (07:30)
--- NOTE | 2020-01-27 07:30 | NUR ---
RN MS NOTES PT AWAKE, ALERT AND ORIENTED, WALKING INSIDE HER ROOM, NO COMPLAINT AT THIS TIME, PT STILL DECIDING ON DOING THE CT SCAN OF ABD AND PELVIS, NEEDS ATTENDED, ENCOURAGED INCREASED ORAL INTAKE.
[2020-01-27] MEDS: ALLOPURINOL 100 MG TABLET PO SCH ×3 (08:40→16:41)
[2020-01-27] MEDS: DOCUSATE SODIUM 100 MG CAPSULE PO SCH ×2 (08:40→16:41)
[2020-01-27] MEDS: HYDROXYUREA 500 MG CAPSULE PO SCH (08:40)
--- NOTE | 2020-01-27 08:40 | NUR ---
RN MS NOTES PT REFUSED AM MEDS, EXPLAINED WHAT THE MEDS ARE FOR, STILL REFUSED, DR. DAVENPORT INFORMED.
--- NOTE | 2020-01-27 08:43 | NUR ---
RN MS NOTES PT SEEN BY DR. DAVENPORT, PLAN OF CARE DISCUSSED WITH PT, PT STILL UNDECIDED TO DO THE CT SCAN OF THE ABD.
[2020-01-27 09:44] VITALS: BP 125/79
[2020-01-27 11:59] LABS: EOSINOPHILS % (MANUAL) 1 % (0-4); LYMPHOCYTES % (MANUAL) 91 % (16-48); MONOCYTES % (MANUAL) 1 % (0-11.0); NEUTROPHILS % (MANUAL) 5 (42-76); REACTIVE LYMPHOCYTES 2 % (0-0)
[2020-01-27] MEDS ORDERED: IOHEXOL-300 100 ML VIAL IV ONE (15:33)
[2020-01-27] MEDS ORDERED: IV NS 0.9% 250 ML IV ONE (15:33)
[2020-01-27] MEDS ORDERED: CT SWABBABLE VALVE TRANS SET 1 EA INFUS.SET MC ONE (15:33)
[2020-01-27] MEDS ORDERED: IV NS 0.9% 500 ML BAG IV ONE (17:00)
[2020-01-27 17:10] VITALS: BP 102/64
--- NOTE | 2020-01-27 19:00 | NUR ---
RN MS NOTES PT IN BED, AWAKE, ALERT AND ORIENTED, DENIES PAIN, NOT IN DISTRESS, PT CONSENTED TO CT SCAN OF ABDOMEN AND PELVIS, ENCOURAGED INCREASED PO INTAKE, AMBULATES WITH STEADY GAIT TO THE BATHROOM, ALL NEEDS ATTENDED.
--- NOTE | 2020-01-27 19:30 | NUR ---
MS RN OPENING NOTES RECEIVE PATIENT FROM MORNING SHIFT, ALERT AND ORIENTED X 3. AMBULATORY, VERBALLY RESPONSIVE AND ABLE TO FOLLOW DIRECTIONS. BREATHING REGULAR AND UNLABORED ON ROOM AIR. RIGHT FOREARM G22 INTACT AND PATENT, INFUSING WELL WITH NO BLEEDING AND S/S OF INFILTRATION NOTED. DENIES SUICIDAL IDEATION, NO COMPLAINTS OF PAIN/DISCOMFORT REPORTED AT THIS TIME. BED LOW AND LOCKED ON SEMI FOWLERS POSITION. CALL LIGHT IN REACH. WILL CONTINUE TO MONITOR.
[2020-01-27 20:00] VITALS: BP 99/67
[2020-01-27 20:14] VITALS: BP 99/67
--- NOTE | 2020-01-28 03:35 | NUR ---
MS RN NOTES COMPLAINED OF BLOATED LIKE PAIN, PER PATIENT SHE'S NOT HAVING BOWEL MOVEMENT FOR 4DAYS, PRESCRIBED STOOL SOFTENER OR EVEN PAIN MEDICATIONS REFUSED. RISK AND BENEFITS EXPLAINED. OFFERED AND TOOK WARM PRUNE JUICE INSTEAD. WILL CONTINUE TO MONITOR.
[2020-01-28 05:29] VITALS: BP_SYST 102; BP_SYST 98; BP_DIAS 67; BP_DIAS 70
[2020-01-28 05:30] VITALS: BP 101/72
--- NOTE | 2020-01-28 06:25 | NUR ---
MS RN CLOSING NOTES PATIENT IN BED ALERT AND ORIENTED X 3. AFEBRILE WITH NO S/S OF DISTRESS OBSERVED. RIGHT FOREARM G22 PATENT AND FLUSHING WELL. COMPLAINED OF 4/10 ABDOMINAL PAIN BUT REFUSED PAIN MEDICATIONS AND NON-PHARMACOLOGICAL INTERVENTIONS. RISK AND BENEFITS EXPLAINED. BED LOW AND LOCKED ON SEMI FOWLERS POSITION. CALL LIGHT IN REACH. WILL ENDORSE TO MORNING SHIFT FOR AILEEN.
[2020-01-28] MEDS: PANTOPRAZOLE 40 MG TABLET.DR PO SCH (07:30)
[2020-01-28] MEDS: HYDROXYUREA 500 MG CAPSULE PO SCH (08:12)
[2020-01-28] MEDS: DOCUSATE SODIUM 100 MG CAPSULE PO SCH (08:12)
[2020-01-28] MEDS: ALLOPURINOL 100 MG TABLET PO SCH ×2 (08:13→12:36)
[2020-01-28 08:27] VITALS: BP 133/75
--- NOTE | 2020-01-28 09:00 | NUR ---
MS RN OPENING NOTES RECEIVE PATIENT IN BED. AWAKE, ALERT AND ORIENTED X 3. AMBULATORY, VERBALLY RESPONSIVE AND ABLE TO FOLLOW DIRECTIONS. BREATHING REGULAR AND UNLABORED ON ROOM AIR. RIGHT FOREARM G22 INTACT AND PATENT, INFUSING WELL WITH NO BLEEDING AND S/S OF INFILTRATION NOTED. DENIES SUICIDAL IDEATION, NO COMPLAINTS OF PAIN/DISCOMFORT REPORTED AT THIS TIME. PT REFUSED ALL AM MEDS. SHE STATES, "I DONT WANT ANY OF IT." EDUCATED PT RE: RISKS AND BENEFITS OF TAKING MEDS PRESCRIBED BY HER MD. PT STILL REFUSED. SAFETY PRECAUTIONS IN PLCAE. BED LOW AND LOCKED ON SEMI FOWLERS POSITION. CALL LIGHT IN REACH. WILL CONTINUE TO MONITOR.
--- NOTE | 2020-01-28 15:45 | NUR ---
REFUSED CT OF CHEST/HEAD PT REFUSED TO GO WITH THE RADIOLOGIST FOR THE STAT CT. WHEN I ASKED WHY SHE DID NOT WANT TO DO IT WHEN IT WAS ORDERED BY DR. DOVE, SHE SAID, "ILL TALK TO MY DAUGHTER FIRST". WILL ASK PT AGAIN. EDUCATED PT REGARDING THE IMPORTANCE OF GETTING THIS CT SCAN DONE. PT UNDERSTOOD.
--- NOTE | 2020-01-28 16:00 | NUR ---
REFUSED CT OF HEAD AND CHEST PT REFUSED CT OF HEAD AND CHEST ORDERED BY DR. DERRELL BACH. WHEN I ASKED WHY SHE DOESNT WANNA DO IT, SHE DOESNT GIVE ME A DEFINITE ANSWER. EDUCATED PT REGARDING THE RISKS AND BENEFITS OF GETTING PROVEDURE PERFORMED. BUT SHE STILL REFUSED.
--- NOTE | 2020-01-28 16:20 | NUR ---
D/C HOME PT DISCHARGED HOME IN STABLE CONDITION. NO CARDIAC OR RESPIRATORY DISTRESS NOTED. NO SOB NOTED. SATURATING WELL ON ROOM AIR. PT WAS PICKED UP BY HER DAUGHTER RONNA VIA PRIVATE CAR. RN ASSISTED PT TO THE LOBBY AND ASSISTED TO THE CAR. PT IS AMBULATORY. IV ACCESS REMOVED. NO BLEEDING NOTED TO SITE. PROVIDED ALL D/C INSTRUCTIONS TO PT AND DAUGHTER. EDUCATED PT TO MAKE AN APPT WITH AN ONCOLOGIST/MANAGER TECHNICAL SUPPORT DENNISE. PROVIDED PT WITH 3 OTHER ONCOLOGIST FOR REFERRAL WELL DR. DOVE'S NUMBER/INFORMATION. EUCATED BOTH PT AND HER DAUGHTER THAT IN CASE THE THE PT IS IN ANY FORM OF DISTRESS, OR IF SHE FEELS CHEST PAIN OR SOB OR ANY CHANGE OF CONDITION FOR THAT MATTER, TO CALL 911 AND/OR TO GO TO THE NEAREST ER. PT AND DAUGHTER UNDERSTOOD TEACHING. ALL QUESTIONS WERE ADDRESSED. PROVIDED PT WITH D/C PACKET INCLUDING MD PROGRESS NOTED, LABS, IMAGING WELL CD FOR THE CT SCAN. PT LEFT THE HOSPITAL VIA CAR. ALL BELONGINGS TAKEN, INVENTORY SIGNED BY PT.
== END 2020-01-28 16:15 | disposition home or self-care (01) | DRG 841 ==
LOC: ER 11:36 → MED 13:46
PROVIDERS: ADMIT Nurse Practitioner Acute Care; ATTEND Nurse Practitioner Acute Care
DX: C91.10 Chronic lymphocytic leukemia of B-cell type not having achieved remission (principal); I47.1 Supraventricular tachycardia; C85.10 Unspecified B-cell lymphoma, unspecified site; Z85.3 Personal history of malignant neoplasm of breast; Z90.13 Acquired absence of bilateral breasts and nipples; Z91.19 Patient's noncompliance with other medical treatment and regimen; D69.6 Thrombocytopenia, unspecified; D63.8 Anemia in other chronic diseases classified elsewhere; Z90.49 Acquired absence of other specified parts of digestive tract; R16.1 Splenomegaly, not elsewhere classified; F41.9 Anxiety disorder, unspecified; F32.9 Major depressive disorder, single episode, unspecified
CPT/HCPCS: 36415; 70450-TC; 71250-TC; 74178; 80048-TC; 80076-TC; 81000-TC; 83605-TC; 83735-TC; 84100-TC; 84484-TC; 84550-TC; 85025-TC; 85730-TC; 87040-TC; 87081-TC; 87086-TC; G0378; J7030; J7040; J7050; Q9967

== ENCOUNTER 2023-04-17 23:23 | Inpatient (IN) | payer MEDICARE, OTHER ==
[~2023-04-17] VITALS: Ht 182.9 cm; Wt 86.2 kg
[2023-04-18] MEDS ORDERED: DIATR MEGLU/DIATRIZOATE SODIUM 30 ML BOTTLE (GASTROGRAPHIN) ONE
[2023-04-18 00:20] LABS: BASOPHILS # (AUTO) 0.1 K/uL (0.0-0.2); BASOPHILS % (AUTO) 0.5 % (0.0-2.0); EOSINOPHILS # (AUTO) 0.3 K/uL (0.0-0.7); EOSINOPHILS % (AUTO) 1.8 % (0.0-6.0); HEMATOCRIT 41 % (33-45); HEMOGLOBIN 13.2 g/dL (11.5-14.8); LYMPHOCYTES # (AUTO) 3.7 K/uL (0.8-4.8); LYMPHOCYTES % (AUTO) 26.1 % (20.0-44.0); MEAN CORPUSCULAR HEMOGLOBIN 30 PG (26.0-33.0); MEAN CORPUSCULAR HGB CONC 32 g/dl (31.0-36.0); MEAN CORPUSCULAR VOLUME 93 fL (82-100); MONOCYTES # (AUTO) 1.4 K/uL (0.1-1.30); MONOCYTES % (AUTO) 9.6 % (2.0-12.0); NEUTROPHILS # (AUTO) 8.8 K/uL (1.8-8.9); PLATELET COUNT (AUTO) 203 K/uL (150-450); RED BLOOD CELL COUNT(AUTO) 4.42 MIL/uL (4.0-5.2); RED CELL DISTRIBUTION WIDTH 13.6 % (11.5-15.0); WHITE BLOOD COUNT (AUTO) 14.1 K/uL (4.3-11.0)
[2023-04-18 00:37] LABS: CALCIUM, SERUM 9.7 mg/dL (8.5-10.1); CARBON DIOXIDE 27 mmol/L (21-32); CHLORIDE 100 mmol/L (98-107); CREATININE 0.6 mg/dL (0.6-1.3); GLUCOSE 119 mg/dL (74-106); POTASSIUM 4.4 mmol/L (3.5-5.1); SODIUM SERUM 136 mmol/L (136-145); UREA NITROGEN, BLOOD 11 mg/dL (7-18)
[2023-04-18 00:42] LABS: ALANINE AMINOTRANSFERASE 21 U/L (12-78); ALBUMIN 3.9 g/dL (3.4-5.0); ALKALINE PHOSPHATASE 91 U/L (46-116); ASPARTATE AMINOTRANSFERASE 23 U/L (15-37); BILIRUBIN,DIRECT 0.1 mg/dL (0.0-0.2); BILIRUBIN,TOTAL 0.5 mg/dL (0.2-1.0); LIPASE 74 U/L (73-393); TOTAL PROTEIN, SERUM 7.3 g/dL (6.4-8.2)
[2023-04-18] MEDS ORDERED: Z GUARD REMEDY 4 OZ OINT TP PRN (01:00)
[2023-04-18] MEDS ORDERED: MAG HYDROX/AL HYDROX/SIMETH 30 ML UDC PO PRN (01:00)
[2023-04-18] MEDS ORDERED: ONDANSETRON HCL/PF 4 MG/2 ML VIAL IVP PRN (01:00)
[2023-04-18] MEDS ORDERED: MAGNESIUM HYDROXIDE 30 ML UDC PO PRN (01:00)
[2023-04-18] MEDS ORDERED: ZOLPIDEM TARTRATE 5 MG TABLET PO PRN (01:00)
[2023-04-18] MEDS ORDERED: IV NS 0.9% 1,000 ML IV PRN (01:00)
[2023-04-18] MEDS ORDERED: ACETAMINOPHEN 325 MG TABLET PO PRN (01:00)
[2023-04-18] MEDS ORDERED: AMOXICILLIN TRIHYDRATE 500 MG CAPSULE PO ONE (01:30)
[2023-04-18] MEDS ORDERED: AMOXICILLIN TRIHYDRATE 250 MG CAPSULE ONE (01:33)
[2023-04-18 02:30] VITALS: BP 114/67; TEMP 97.8; O2SAT 98
[2023-04-18 02:31] LABS: APPEARANCE,URINE CLEAR (CLEAR); BILIRUBIN,URINE NEGATIVE (NEGATIVE); BLOOD, URINE NEGATIVE Ery/uL (NEGATIVE); COLOR,URINE YELLOW (YELLOW); KETONES,URINE NEGATIVE (NEGATIVE); LEUKOCYTE ESTERASE ,URINE NEGATIVE (NEGATIVE); NITRITE, URINE NEGATIVE (NEGATIVE); PROTEIN,URINE NEGATIVE (NEGATIVE); UGLUCOSE NEGATIVE (NEGATIVE); UROBILINOGEN,URINE 0.2 EU/dL (0.2)
[2023-04-18] MEDS ORDERED: LORAZEPAM 1 MG TABLET PO PRN (03:30)
[2023-04-18 05:46] LABS: BASOPHILS % (AUTO) 0.3 % (0.0-2.0); EOSINOPHILS # (AUTO) 0.1 K/uL (0.0-0.7); EOSINOPHILS % (AUTO) 0.9 % (0.0-6.0); HEMATOCRIT 41 % (33-45); LYMPHOCYTES # (AUTO) 2.4 K/uL (0.8-4.8); LYMPHOCYTES % (AUTO) 17.5 % (20.0-44.0); MEAN CORPUSCULAR HEMOGLOBIN 30 PG (26.0-33.0); MEAN CORPUSCULAR HGB CONC 32 g/dl (31.0-36.0); MEAN CORPUSCULAR VOLUME 95 fL (82-100); MONOCYTES # (AUTO) 0.7 K/uL (0.1-1.30); MONOCYTES % (AUTO) 5.3 % (2.0-12.0); NEUTROPHILS # (AUTO) 10.5 K/uL (1.8-8.9); PLATELET COUNT (AUTO) 119 K/uL (150-450); RED BLOOD CELL COUNT(AUTO) 4.29 MIL/uL (4.0-5.2); RED CELL DISTRIBUTION WIDTH 13.5 % (11.5-15.0); WHITE BLOOD COUNT (AUTO) 13.8 K/uL (4.3-11.0)
[2023-04-18 08:00] VITALS: BP 110/70; TEMP 99.5; O2SAT 98
[2023-04-18] MEDS: ASPIRIN 81 MG TAB.CHEW PO SCH ×2 (11:00→12:38)
[2023-04-18 14:04] VITALS: BP_SYST 104; BP_SYST 108; BP_SYST 94; BP_DIAS 62; BP_DIAS 65; BP_DIAS 71
[2023-04-18 16:00] VITALS: BP 100/72; TEMP 98.3; O2SAT 96
[2023-04-18 20:00] VITALS: BP 95/63; TEMP 97.7; O2SAT 98
[2023-04-19] VITALS: BP 98/63; TEMP 98; O2SAT 95
[2023-04-19 06:25] LABS: BASOPHILS # (AUTO) 0.1 K/uL (0.0-0.2); BASOPHILS % (AUTO) 1.3 % (0.0-2.0); EOSINOPHILS # (AUTO) 0.1 K/uL (0.0-0.7); EOSINOPHILS % (AUTO) 1.6 % (0.0-6.0); HEMATOCRIT 38 % (33-45); HEMOGLOBIN 12.7 g/dL (11.5-14.8); LYMPHOCYTES # (AUTO) 3.9 K/uL (0.8-4.8); LYMPHOCYTES % (AUTO) 42.2 % (20.0-44.0); MEAN CORPUSCULAR HEMOGLOBIN 31 PG (26.0-33.0); MEAN CORPUSCULAR HGB CONC 33 g/dl (31.0-36.0); MEAN CORPUSCULAR VOLUME 92 fL (82-100); MONOCYTES % (AUTO) 11.2 % (2.0-12.0); NEUTROPHILS % (AUTO) 43.7 % (43.0-81.0); PLATELET COUNT (AUTO) 328 K/uL (150-450); RED BLOOD CELL COUNT(AUTO) 4.11 MIL/uL (4.0-5.2); RED CELL DISTRIBUTION WIDTH 13.3 % (11.5-15.0); WHITE BLOOD COUNT (AUTO) 9.2 K/uL (4.3-11.0)
[2023-04-19 06:51] LABS: CALCIUM, SERUM 9.5 mg/dL (8.5-10.1); CREATININE 0.6 mg/dL (0.6-1.3); PHOSPHORUS 3.4 mg/dL (2.5-4.9)
[2023-04-19 07:31] LABS: ALBUMIN 3.5 g/dL (3.4-5.0); BILIRUBIN,DIRECT 0.2 mg/dL (0.0-0.2); MAGNESIUM 2.1 mg/dL (1.8-2.4); TOTAL PROTEIN, SERUM 6.7 g/dL (6.4-8.2)
[2023-04-19 08:00] VITALS: BP 101/72; TEMP 98.4; O2SAT 96
[2023-04-19] MEDS: ASPIRIN 81 MG TAB.CHEW PO SCH (09:00)
[2023-04-19 12:00] VITALS: BP 101/70; TEMP 98.3; O2SAT 97
[2023-04-19 16:00] VITALS: BP 102/64; TEMP 97.8; O2SAT 96
[2023-04-19 20:36] VITALS: BP 109/70; TEMP 97.9; O2SAT 96
[2023-04-19] MEDS: LEVETIRACETAM (250 MG) 250 MG TABLET PO SCH (20:36)
[2023-04-20 00:19] VITALS: BP 110/71; TEMP 98.2; O2SAT 96
[2023-04-20 04:37] VITALS: BP_SYST 84; TEMP 97.8; O2SAT 96
[2023-04-20 05:00] VITALS: BP 93/61; TEMP 97.8; O2SAT 96
[2023-04-20 08:00] VITALS: BP 121/79; TEMP 98; O2SAT 97
[2023-04-20] MEDS: ASPIRIN 81 MG TAB.CHEW PO SCH (09:00)
[2023-04-20] MEDS: LEVETIRACETAM (250 MG) 250 MG TABLET PO SCH (09:00)
[2023-04-20] MEDS ORDERED: LEVE250T2 PO (11:13)
[2023-04-20] MEDS ORDERED: ASPI-1169 PO (11:13)
[2023-04-20 15:41] VITALS: BP 113/75; TEMP 97.6
== END 2023-04-20 17:23 | disposition home or self-care (01) | DRG 74 ==
LOC: ER 23:24 → TELE 04-18 01:17
PROVIDERS: ADMIT Nurse Practitioner Acute Care; ATTEND Internal Medicine
DX: G90.8 Other disorders of autonomic nervous system (principal); G45.9 Transient cerebral ischemic attack, unspecified; S06.9X9A Unspecified intracranial injury with loss of consciousness of unspecified duration, initial encounter; C85.90 Non-Hodgkin lymphoma, unspecified, unspecified site; R47.01 Aphasia; R56.9 Unspecified convulsions; E86.0 Dehydration; G62.9 Polyneuropathy, unspecified; W18.30XA Fall on same level, unspecified, initial encounter; Y92.009 Unspecified place in unspecified non-institutional (private) residence as the place of occurrence of the external cause; Z85.3 Personal history of malignant neoplasm of breast; Z92.21 Personal history of antineoplastic chemotherapy; Z90.49 Acquired absence of other specified parts of digestive tract; Z90.710 Acquired absence of both cervix and uterus; Z90.81 Acquired absence of spleen; Z98.51 Tubal ligation status; N61.1 Abscess of the breast and nipple; Z86.79 Personal history of other diseases of the circulatory system; W22.03XA Walked into furniture, initial encounter
CPT/HCPCS: 36415; 70450-TC; 71045-TC; 80048-TC; 80061-TC; 80076-TC; 82962-TC; 83690-TC; 83735-TC; 83880; 84100-TC; 84443-TC; 84484-TC; 85025-TC; 87086-TC; 93307-TC; 93880-TC; 93970-TC; 95819-TC; 97110-TC; 97112-TC; 97116-TC; 97530-TC; A4223; G0378; J7030; Q9963